=== PATIENT | female | born 1925 | race Caucasian/White ===

== ENCOUNTER 2017-02-20 18:57 | Emergency (ER) | payer OTHER ==
[2017-02-20 20:01] VITALS: BP 169/82
--- NOTE | 2017-02-20 20:52 | RAD ---
INDICATION: Right-sided chest pain after a fall. COMPARISON: None. TECHNIQUE: 4 views of the right ribs were obtained. FINDINGS: An external metallic marker is noted overlying the lower right ribs. No fracture or significant focal osseous abnormality is seen. No pneumothorax is apparent. Limited views demonstrate grossly clear lungs. IMPRESSION: No radiographically apparent displaced rib fracture or pneumothorax. If the patient's symptoms persist, follow-up imaging is recommended.
--- NOTE | 2017-02-20 20:55 | UC ---
Truncal Trauma HPI - HPI Summary HPI Summary: 89 yo female fell 3 days ago hit right chest on box right sided cp worse with deep breath/changing position no sob no abd pain no back pain - History Of Current Complaint Chief Complaint: UCChestPain Stated Complaint: RIGHT SIDE ABDOMINAL PAIN Time Seen by Provider: 02/20/17 20:08 Hx Obtained From: Patient Onset/Duration: Sudden Onset Onset Of Pain: Immediate Severity Initially: Moderate Severity Currently: Severe Pain Intensity: 8 Pain Scale Used: 0-10 Numeric Mechanism Of Injury: Fall From A Standing Position Aggravating Factor(s): Movement, Deep Breathing, Cough Alleviating factor(s): Rest Associated Signs And Symptoms: Positive: Chest Pain - Allergies/Home Medications Allergies/Adverse Reactions: Allergies Allergy/AdvReac Type Severity Reaction Status Date / Time No Known Allergies Allergy Verified 02/20/17 19:54 Home Medications: Home Medications Heart Medication Starts With C 1 mg PO BID 02/20/17 [History Confirmed 02/20/17] PMH/Surg Hx/FS Hx/Imm Hx Previously Healthy: Yes Endocrine History: Dyslipidemia Cardiovascular History: Hypertension - Surgical History Surgical History: None - Family History Known Family History: Positive: Hypertension - Social History Alcohol Use: Occasionally Substance Use Type: None Smoking Status (MU): Never Smoked Tobacco Review of Systems Constitutional: Negative Skin: Negative Eyes: Negative ENT: Negative Respiratory: Negative Cardiovascular: Chest Pain Gastrointestinal: Negative Genitourinary: Negative Motor: Negative Neurovascular: Negative Musculoskeletal: Negative Neurological: Negative Psychological: Negative Is Patient Immunocompromised?: No All Other Systems Reviewed And Are Negative: Yes Physical Exam Triage Information Reviewed: Yes Appearance: Well-Appearing, No Pain Distress, Well-Nourished Vital Signs: Initial Vital Signs Temp 98.1 F 02/20/17 19:52 Pulse 72 02/20/17 19:52 Resp 16 02/20/17 19:52 BP 169/82 02/20/17 19:52 Pulse Ox 99 02/20/17 19:52 Eyes: Positive: Conjunctiva Clear Neck: Positive: Supple Respiratory: Positive: Lungs clear, Normal breath sounds, No respiratory distress. Negative: Chest non-tender Cardiovascular: Positive: RRR Abdomen Description: Positive: Nontender, No Organomegaly Bowel Sounds: Positive: Present Musculoskeletal: Positive: ROM Intact, No Edema Neurological: Positive: Alert Diagnostics - Radiology No standard instances Xray Interpretation: No Acute Changes Radiology Interpretation Completed By: Radiologist Truncal Trauma Course/Dx - Differential Dx/Diagnosis Provider Diagnoses: rib contusion. ? occult rib fracture Discharge - Discharge Plan Condition: Stable Disposition: HOME Patient Education Materials: Rib Contusion (ED) Referrals: Nya Martin [Primary Care Provider] - 3 Days Additional Instructions: the radiologist noted no rib fracture this doesn't completely rule out a fracture no may have a nondisplaced fracture we are not see Images Front/Back of Body, Lg (Casey): 1 - tender to palpation/rib springing
[2017-02-20] MEDS ORDERED: Acetaminophen TAB* 325 MG PO ONE (21:04)
== END 2017-02-20 21:12 | disposition home or self-care (01) ==
LOC: UCCORT 18:57
DX: S20.219A Contusion of unspecified front wall of thorax, initial encounter (principal); W19.XXXA Unspecified fall, initial encounter; Y93.9 Activity, unspecified; Y92.9 Unspecified place or not applicable; Z72.89 Other problems related to lifestyle
CPT/HCPCS: 99212; A9270-GY; G0463

== ENCOUNTER 2017-07-14 20:26 | Emergency (ER) | payer OTHER ==
[2017-07-14 20:55] VITALS: BP 125/64
--- NOTE | 2017-07-14 21:08 | UC ---
Skin Complaint HPI - HPI Summary HPI Summary: patient is concerned she has fleas in her belly button - History of Current Complaint Hx Obtained From: Patient ?: No Onset/Duration: Gradual Onset, Lasting Days Timing: Constant Pain Intensity: 0 Pain Scale Used: 0-10 Numeric Location: Discrete Aggravating Factor(s): Nothing Alleviating Factor(s): Nothing Associated Signs & Symptoms: Positive: Negative <Asiya Chavez - Last Filed: 07/14/17 21:53> <Huong Mayen - Last Filed: 07/15/17 06:53> - History of Current Complaint Chief Complaint: UCSkin Time Seen by Provider: 07/14/17 20:51 Stated Complaint: SKIN COMPLAINT - Allergy/Home Medications Allergies/Adverse Reactions: Allergies Allergy/AdvReac Type Severity Reaction Status Date / Time No Known Allergies Allergy Verified 02/20/17 19:54 Review of Systems Constitutional: Negative Skin: Other - [facility] Eyes: Negative ENT: Negative Respiratory: Negative Cardiovascular: Negative Gastrointestinal: Negative Genitourinary: Negative Motor: Negative Neurovascular: Negative Musculoskeletal: Negative Neurological: Negative Psychological: Negative Is Patient Immunocompromised?: No All Other Systems Reviewed And Are Negative: Yes <Asiya Chavez - Last Filed: 07/14/17 21:53> PMH/Surg Hx/FS Hx/Imm Hx Previously Healthy: No Endocrine History: Hypothyroidism, Dyslipidemia Cardiovascular History: Hypertension - Surgical History Surgical History: None - Family History Known Family History: Positive: Hypertension - Social History Occupation: Retired Lives: With Family Alcohol Use: Occasionally Substance Use Type: None Smoking Status (MU): Never Smoked Tobacco <Asiya Chavez - Last Filed: 07/14/17 21:53> Physical Exam Triage Information Reviewed: Yes Appearance: Well-Appearing, No Pain Distress, Well-Nourished Vital Signs: Initial Vital Signs Temp 97.9 F 07/14/17 20:51 Pulse 77 07/14/17 20:51 Resp 18 07/14/17 20:51 BP 125/64 07/14/17 20:51 Pulse Ox 100 07/14/17 20:51 Vital Signs Reviewed: Yes Eye Exam: Normal Eyes: Positive: Conjunctiva Clear ENT Exam: Normal ENT: Positive: Normal ENT inspection, Hearing grossly normal. Negative: Trismus , Muffled voice, Hoarse voice Dental Exam: Normal Neck exam: Normal Neck: Positive: Supple, Nontender Respiratory Exam: Normal Respiratory: Positive: Chest non-tender, No respiratory distress, No accessory muscle use Cardiovascular Exam: Normal Cardiovascular: Positive: RRR, Pulses Normal, Brisk Capillary Refill Abdominal Exam: Normal Abdomen Description: Positive: Nontender, Soft. Negative: Distended, Guarding Musculoskeletal Exam: Normal Musculoskeletal: Positive: Strength Intact, ROM Intact Neurological Exam: Normal Neurological: Positive: Alert, Muscle Tone Normal Psychological Exam: Normal Skin Exam: Other Skin: Positive: Other - large amount of cellular debris, collected in umbillicus <Asiya Chavez - Last Filed: 07/14/17 21:53> Vital Signs: Initial Vital Signs Temp 97.9 F 07/14/17 20:51 Pulse 77 07/14/17 20:51 Resp 18 07/14/17 20:51 BP 125/64 07/14/17 20:51 Pulse Ox 100 07/14/17 20:51 <Huong Mayen - Last Filed: 07/15/17 06:53> Re-Evaluation - Re-Evaluation First Eval Change: Improved - large amount of foul smelling cellular debis removed from umbillicus. area clean and without evidence of infection <Asiya Chavez - Last Filed: 07/14/17 21:53> Course/Dx - Course Course Of Treatment: soap and water wash clean and dry with q-tip every few days - Diagnoses Provider Diagnoses: fb removed from umbillicus <Asiya Chavez - Last Filed: 07/14/17 21:53> Discharge - Sign-Out/Discharge Documenting (check all that apply): Discharge/Admit/Transfer - Billing Disposition and Condition Condition: STABLE Disposition: Home <Asiya Chavez - Last Filed: 07/14/17 21:53> - Billing Disposition and Condition Condition: STABLE Disposition: Home <Huong Mayen - Last Filed: 07/15/17 06:53> - Discharge Plan Condition: Stable Disposition: HOME Referrals: Nya Martin [Primary Care Provider] - Additional Instructions: Your bellybutton is perfect, I removed a large amount of debris from your bellybutton i was able to remove a lot of normal cellular debris that collected Attestation Statement User Type: Provider - I was available for consult. This patient was seen by the HARR[facility]. The patient was not presented to, seen by, or examined by me. -Simon <Huong Mayen - Last Filed: 07/15/17 06:53>
== END 2017-07-14 21:24 | disposition home or self-care (01) ==
LOC: UCCORT 20:26
DX: S30.851A Superficial foreign body of abdominal wall, initial encounter (principal); I10 Essential (primary) hypertension; X58.XXXA Exposure to other specified factors, initial encounter; Y92.9 Unspecified place or not applicable
CPT/HCPCS: 99211; G0463